=== PATIENT | male | born 1985 | race Caucasian/White ===

== ENCOUNTER 2016-08-24 23:21 | Emergency (ER) | payer OTHER ==
[~2016-08-24] VITALS: Ht 180.3 cm; Wt 86.2 kg
--- NOTE | 2016-08-24 23:48 | PHYS DOC ---
Adult General Chief Complaint Chief Complaint: HAND PROBLEM HPI HPI Patient is a 30 year old male presents to the emergency department with complaints of left hand pain. He states he was batting when a pitched ball struck him in the left hand. States this occurred partially 2 hours prior to arrival in the emergency department. Review of Systems Review of Systems Musculoskeletal: Left hand pain Current Medications Current Medications Current Medications Medications (Trade) Dose Ordered Sig/Tianna Start Time Stop Time Status Last Admin Dose Admin Ibuprofen (Motrin) 600 mg 1X ONCE 08/25/16 00:15 08/25/16 00:16 Allergies Allergies Allergies Coded Allergies Type Severity Reaction Last Updated Verified No Known Drug Allergies 08/24/16 No Physical Exam Physical Exam Constitutional: Well developed, well nourished, no acute distress, non-toxic appearance. [] Extremities: Left hand exam, no swelling, tenderness over the fifth metacarpal, distal. There is minimal swelling. He has full range of motion without difficulty. Neurovascular intact distally. Left wrist exam unremarkable. Current Patient Data Vital Signs Vital Signs Date Time Temp Pulse Resp B/P (MAP) Pulse Ox O2 Delivery O2 Flow Rate FiO2 08/24/16 23:56 97.6 85 16 96 Room Air 97.6 EKG EKG [] Radiology/Procedures Radiology/Procedures Left hand x-ray reviewed by Jhony Calhoun, emergency room physician. Minimally displaced fracture of the distal metacarpal of the fifth finger, left hand. Course & Med Decision Making Course & Med Decision Making Pertinent Labs and Imaging studies reviewed. (See chart for details) 1 patient learned of the fracture to his hand he became very anxious and upset and have a vasovagal response, but did not have loss of consciousness. He was immediately laid down. He recovered within minutes of onset. Patient states that an ulnar gutter splint by nursing staff. Neurovascular intact distally. Patient tolerated procedure well. [] Dragon Disclaimer Dragon Disclaimer This electronic medical record was generated, in whole or in part, using a voice recognition dictation system. Departure Departure Impression: Primary Impression: Hand fracture, left Additional Impression: Vasovagal response Disposition: 01 HOME, SELF-CARE Condition: STABLE Referrals: NO PCP (PCP) Patient Instructions: Hand Fracture, Fifth Metacarpal Additional Instructions: Follow-up with the hand specialist in your hometown her your service dog trainer Problem Qualifiers RIGO LALA APRN Aug 24, 2016 23:48
[2016-08-24 23:56] VITALS: BP 121/67
[2016-08-25] MEDS ORDERED: IBUPROFEN 600 MG TABLET. PO ONE (00:15)
--- NOTE | 2016-08-25 07:56 | RAD ---
Examination: 3 views of the left hand History: History of pain to the fifth digit Comparison: None available Findings: There is minimal displaced fracture of the distal shaft of the fifth metacarpal. The alignment of the metacarpophalangeal joints, interphalangeal joints grossly appears unremarkable. Impression: Minimally displaced fracture of the distal shaft of the fifth metacarpal.
== END 2016-08-25 00:40 | disposition home or self-care (01) ==
LOC: ER 23:21
DX: S62.92XA Unspecified fracture of left hand, initial encounter for closed fracture (principal); R55 Syncope and collapse; W21.09XA Struck by other hit or thrown ball, initial encounter; Y93.89 Activity, other specified; Y99.8 Other external cause status; Y92.89 Other specified places as the place of occurrence of the external cause
CPT/HCPCS: 29125; 73130; 99284-25